=== PATIENT | female | born 1970 | race American Indian/Alaskan Native ===

== ENCOUNTER 2017-05-11 18:46 | Emergency (ER) | payer MEDICAID ==
[2017-05-11 19:29] LABS: Basophils % (Auto) 0.5 % (0.0-1.8); Eosinophils % (Auto) 0.8 % (0.0-4.3); Hematocrit 37.4 % (30.3-42.9); Hemoglobin 11.9 gm/dl (10.1-14.3); Mean Corpuscular HGB Conc 32 % (30-34); Mean Corpuscular Volume 81 fl (79-97); Platelet Count 292 K/mm3 (140-440); Red Blood Count 4.63 M/mm3 (3.65-5.03); Red Cell Distribution Width 15.9 % (13.2-15.2); White Blood Count 8.3 K/mm3 (4.5-11.0)
[2017-05-11 19:34] LABS: Mean Corpuscular Hemoglobin 26 pg (28-32)
[2017-05-11 19:41] LABS: Alanine Aminotransferase 18 units/L (7-56); Albumin 4.4 g/dL (3.9-5); Albumin/Globulin Ratio 1.3 %; Alkaline Phosphatase 94 units/L (35-129); Anion Gap 21 mmol/L; BUN/Creatinine Ratio 16.25; Blood Urea Nitrogen 13 mg/dL (7-17); Carbon Dioxide 23 mmol/L (22-30); Chloride 105.6 mmol/L (98-107); Glucose 99 mg/dL (65-100); Lipase 17 units/L (13-60); Potassium 4.3 mmol/L (3.6-5.0); Sodium 145 mmol/L (137-145); Total Protein 7.8 g/dL (6.3-8.2)
[2017-05-11 20:37] LABS: Bacteria,Urine 1+ /HPF (Negative); Bilirubin,Urine NEG (Negative); Blood,Urine SM (Negative); Ketones,Urine TR mg/dL (Negative); Leukocyte Esterase,Urine NEG (Negative); Mucus,Urine FEW /HPF; Nitrite,Urine NEG (Negative); Urobilinogen,Urine < 2.0 mg/dL (<2.0)
[2017-05-11] MEDS ORDERED: PEPCID IV ONE (23:29)
[2017-05-11] MEDS ORDERED: MORPHINE IV ONE (23:29)
[2017-05-11] MEDS ORDERED: ALUM-MAG HYDROX-SIMETH 200-200-20MG/5ML PO ONE (23:29)
[2017-05-11] MEDS ORDERED: ZOFRAN IV ONE (23:30)
[2017-05-11] MEDS ORDERED: NACL 0.9% 1000 ML 1,000 ML IV ONE (23:30)
--- NOTE | 2017-05-11 23:32 | Emergency Department Report ---
ED Abdominal Pain HPI - General Chief Complaint: Abdominal Pain Stated Complaint: ABD PAIN/VOMITING/DIARRHEA Time Seen by Provider: 05/11/17 23:10 Source: patient Mode of arrival: Ambulatory Limitations: No Limitations - History of Present Illness Initial Comments: 46-year-old -Portuguese female with severe abdominal pain, 10 out of 10, cramping like, nausea, vomiting 4 that started today. Symptoms started after the patient ate some [employer] Julián. She also has several episodes of diarrhea. No fever, no chills. Patient has a history of blood pressure compliant with medication. Pain is located in the epigastric area. No other alleviating or exacerbating factors. No prior similar symptoms MD Complaint: abdominal pain -: Gradual - Related Data Previous Rx's Medication Instructions Recorded Last Taken Type Promethazine [Phenergan TAB] 25 mg PO Q6HR PRN #14 tab 05/12/17 Unknown Rx Allergies Allergy/AdvReac Type Severity Reaction Status Date / Time Penicillins Allergy Shortness Verified 05/11/17 18:53 of Breath ED Review of Systems ROS: Stated complaint: ABD PAIN/VOMITING/DIARRHEA Other details as noted in HPI Comment: All other systems reviewed and negative Gastrointestinal: abdominal pain, nausea, vomiting, diarrhea ED Past Medical Hx - Past Medical History Hx Hypertension: Yes Hx GERD: Yes Hx of Cancer: Yes ([place] LYMPHOMA) Hx Asthma: Yes Additional medical history: VERTIGO. OBESITY - Surgical History Additional Surgical History: . HYSTERECTOMY. MASS REMOVED RIGHT LEG - Social History Smoking Status: Never Smoker Substance Use Type: None - Medications Home Medications: Home Medications Medication Instructions Recorded Confirmed Last Taken Type Promethazine [Phenergan TAB] 25 mg PO Q6HR PRN #14 tab 05/12/17 Unknown Rx ED Physical Exam - General Limitations: No Limitations General appearance: alert - Head Head exam: Present: atraumatic - Eye Eye exam: Present: normal appearance - ENT ENT exam: Present: normal exam - Respiratory Respiratory exam: Present: normal lung sounds bilaterally - Cardiovascular Cardiovascular Exam: Present: regular rate, normal rhythm - GI/Abdominal GI/Abdominal exam: Present: soft, tenderness - Skin Skin exam: Present: warm, intact ED Course Vital Signs 05/11/17 05/12/17 18:57 00:46 Temperature 98.5 F 98.8 F Pulse Rate 102 H 82 Respiratory 19 18 Rate Blood Pressure 164/108 Blood Pressure 160/85 [Left] O2 Sat by Pulse 98 98 Oximetry ED Medical Decision Making - Lab Data Result diagrams: 05/11/17 19:03 05/11/17 19:03 Critical care attestation.: If time is entered above; I have spent that time in minutes in the direct care of this critically ill patient, excluding procedure time. ED Disposition Clinical Impression: Enteritis, Food poisoning Disposition: DC-01 TO HOME OR SELFCARE Is pt being admited?: No Does the pt Need Aspirin: No Condition: Stable Instructions: Abdominal Pain (ED) Prescriptions: Promethazine [Phenergan TAB] 25 mg PO Q6HR PRN #14 tab PRN Reason: Nausea Referrals: NATY LAL NP-C [Primary Care Provider] - 3-5 Days Forms: Work/School Release Form(ED)
[2017-05-12 00:47] VITALS: BP 160/85
--- NOTE | 2017-05-12 01:16 | Cat Scan Report ---
FINAL REPORT PROCEDURE: CT ABDOMEN PELVIS WO CON TECHNIQUE: Computerized axial tomography of the abdomen and pelvis was performed without intravenous contrast. This study is performed without intravascular contrast material and its sensitivity for abdominal and pelvic pathology, including neoplasms, inflammation, abscess, free fluid, thrombosis, arterial dissection and infarction, is reduced compared with a contrast enhanced study. HISTORY: abd pain COMPARISON: No prior studies are available for comparison. FINDINGS: Lower Lung [place]: No focal abnormality seen. Upper Abdomen: The unenhanced images of the liver and gallbladder as well as the adrenal glands, the pancreas and spleen are unremarkable. Kidneys, Ureters and Urinary bladder: No abnormalities are identified. Urinary bladder is only partially filled and shows no gross abnormality. Calcifications are seen in the lower pelvis which appear to represent phleboliths. Retroperitoneum: Mild atherosclerotic changes seen in the abdominal aorta and iliac arteries. No aneurysm is seen. Nonspecific subcentimeter lymph nodes are seen in the retroperitoneum. No pathologically enlarged lymph nodes are identified. Bowel: Mild diverticulosis seen in the sigmoid colon without evidence of diverticulitis. There is no evidence of bowel obstruction. Normal-appearing appendix is seen in the right lower quadrant. No ascites or free intraperitoneal gas is seen. Bravo of several loops of small bowel in the left lower quadrant appear thicker than expected. These are visualized on image 105 series 3 axial image through image 150 series 3 axial image. I cannot exclude a nonspecific enteritis. Bowel loops otherwise are unremarkable. Reproductive organs: Uterus is surgically absent. No abnormal adnexal masses are seen. Other: No acute bony abnormalities are identified. IMPRESSION: Prior hysterectomy. Mild sigmoid diverticulosis without evidence of diverticulitis. Bravo of several loops of small bowel in the left lower quadrant appear thicker than expected. I cannot exclude a mild nonspecific enteritis. No ascites or bowel obstruction is visualized. No other abnormalities are identified..
== END 2017-05-12 01:45 | disposition home or self-care (01) ==
LOC: ED 18:46
DX: K52.9 Noninfective gastroenteritis and colitis, unspecified (principal); T62.8X1A Toxic effect of other specified noxious substances eaten as food, accidental (unintentional), initial encounter; Y92.89 Other specified places as the place of occurrence of the external cause; K21.9 Gastro-esophageal reflux disease without esophagitis; I10 Essential (primary) hypertension; C81.90 Hodgkin lymphoma, unspecified, unspecified site
CPT/HCPCS: 36415; 74176; 80053; 81001; 83690; 85025; 96361; 96374; 96375; 99284; J2270; J2405; J7030

== ENCOUNTER 2019-07-06 16:57 | Emergency (ER) | payer SELFPAY ==
[2019-07-06 17:07] VITALS: BP 162/96
--- NOTE | 2019-07-06 17:08 | Event Note ---
ED Screening Note Date of service: 07/06/19 Time: 17:04 ED Screening Note: This is a 48 y.o. F. that presents to the ER with low hip pain radiating to left leg. Patient reports waking up with symptoms. She also reports a cough for 1 week that is worsening. Taking OTC cough medication. This initial assessment/diagnostic orders/clinical plan/treatment(s) is/are subject to change based on patients health status, clinical progression and re- assessment by fellow clinical providers in the ED. Further treatment and workup at subsequent clinical providers discretion. Patient/guardian urged not to elope from the ED as their condition may be serious if not clinically assessed and managed. Initial orders include: XR L-spine and CXR
--- NOTE | 2019-07-06 18:01 | XRay Report ---
Left hip, 2 views INDICATION: Hip pain FINDINGS: The joint space is maintained. There is no fracture or dislocation. No spurring or arthriti c change. No bone lesion or periostitis. No significant abnormality. IMPRESSION: Negative study Signer Name: Satya Aguilar MD Signed: 07/06/2019 5:57 PM Workstation Name: [id number]
--- NOTE | 2019-07-06 18:02 | XRay Report ---
LUMBAR SPINE 3 VIEWS INDICATION / CLINICAL INFORMATION: low back pain. COMPARISON: CT of the abdomen and pelvis from 05/12/2017 FINDINGS: VERTEBRAE: No acute fracture. No significant malalignment. Transitional L5 vertebra is noted, with bi lateral pseudoarthroses. DISC SPACES / FACET JOINTS:No significant abnormality. PARASPINAL SOFT TISSUES:No significant abnormality. Signer Name: Paul Solis MD Signed: 07/06/2019 5:58 PM Workstation Name: [id number]
--- NOTE | 2019-07-06 18:02 | XRay Report ---
CHEST 2 VIEWS INDICATION / CLINICAL INFORMATION: cough. COMPARISON: None available. FINDINGS: SUPPORT DEVICES: None. HEART / MEDIASTINUM: No significant abnormality. LUNGS / PLEURA: No significant pulmonary or pleural abnormality. No pneumothorax. ADDITIONAL FINDINGS: No significant additional findings. IMPRESSION: 1. No acute findings. Signer Name: Satya Aguilar MD Signed: 07/06/2019 5:57 PM Workstation Name: [id number]
--- NOTE | 2019-07-06 18:23 | Emergency Department Report ---
ED Back Pain/Injury HPI - General Chief Complaint: Upper Respiratory Infection Stated Complaint: LEG/CHEST PAIN/COLD SX Time Seen by Provider: 07/06/19 17:03 Source: patient Limitations: No Limitations - History of Present Illness Initial Comments: Mrs. Monreal is a 48-year-old female with history of asthma GERD hypertension who presents with one week of cough and nasal congestionand one day of back pain. Clear sputum production. Nasal congestion. No fever. She did use over the counter successfully with Mucinex. She awakened this morning with severe lower back pain radiating to the left hip to the knee. Worse with position change. Worse with sitting to standing motion. 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 No previous history of back pain. She is followed by PCP at [facility] [place]. MD Complaint: back pain -: Gradual, days(s) (1) Similar Symptoms Previously: No Place: home Radiation: buttocks, left leg Severity: severe Severity scale (0 -10): 10 Quality: dull, aching Consistency: constant Improves With: none Worsens With: movement, sitting upright, walking Context: unknown Associated Symptoms: other (cough congestion) - Related Data Previous Rx's Medication Instructions Recorded Last Taken Type Promethazine [Phenergan] 25 mg PO Q6HR PRN #14 tab 05/12/17 Unknown Rx Cyclobenzaprine [Flexeril] 10 mg PO TID PRN #20 tablet 07/06/19 Unknown Rx HYDROcodone/APAP 5-325 [[place] 1 each PO Q6HR PRN #10 tablet 07/06/19 Unknown Rx 5/325] Ibuprofen [Motrin 800 MG tab] 800 mg PO TID 5 Days #15 tablet 07/06/19 Unknown Rx Allergies Allergy/AdvReac Type Severity Reaction Status Date / Time Penicillins Allergy Shortness Verified 07/06/19 16:59 of Breath ED Review of Systems ROS: Stated complaint: LEG/CHEST PAIN/COLD SX Other details as noted in HPI Comment: All other systems reviewed and negative Constitutional: denies: fever, malaise ENT: congestion Respiratory: cough. denies: shortness of breath Cardiovascular: denies: chest pain Gastrointestinal: denies: abdominal pain, nausea Genitourinary: denies: as per HPI Musculoskeletal: back pain ED Past Medical Hx - Past Medical History Previous Medical History?: Yes Hx Hypertension: Yes Hx GERD: Yes Hx Asthma: Yes Additional medical history: VERTIGO. OBESITY - Surgical History Past Surgical History?: Yes Additional Surgical History: . HYSTERECTOMY. MASS REMOVED RIGHT LEG - Social History Smoking Status: Never Smoker Substance Use Type: None - Medications Home Medications: Home Medications Medication Instructions Recorded Confirmed Last Taken Type Promethazine [Phenergan] 25 mg PO Q6HR PRN #14 tab 05/12/17 Unknown Rx Cyclobenzaprine [Flexeril] 10 mg PO TID PRN #20 tablet 07/06/19 Unknown Rx HYDROcodone/APAP 5-325 [[place] 1 each PO Q6HR PRN #10 tablet 07/06/19 Unknown Rx 5/325] Ibuprofen [Motrin 800 MG tab] 800 mg PO TID 5 Days #15 tablet 07/06/19 Unknown Rx ED Physical Exam - General Limitations: No Limitations General appearance: alert, in no apparent distress - Head Head exam: Present: atraumatic, normocephalic - Eye Eye exam: Present: normal appearance - ENT ENT exam: Present: mucous membranes moist - Neck Neck exam: Present: normal inspection, full ROM - Respiratory Respiratory exam: Present: normal lung sounds bilaterally. Absent: respiratory distress, wheezes, rales, rhonchi - Cardiovascular Cardiovascular Exam: Present: regular rate, normal rhythm, normal heart sounds. Absent: systolic murmur, diastolic murmur, rubs, gallop - GI/Abdominal GI/Abdominal exam: Present: soft, normal bowel sounds. Absent: distended, tenderness, guarding, rebound - Extremities Exam Extremities exam: Present: normal inspection, full ROM. Absent: tenderness - Back Exam Back exam: Present: normal inspection, full ROM, muscle spasm. Absent: tenderness, CVA tenderness (R), CVA tenderness (L) - Neurological Exam Neurological exam: Present: alert, oriented X3, normal gait - Psychiatric Psychiatric exam: Present: normal affect, normal mood - Skin Skin exam: Present: warm, dry, intact, normal color. Absent: rash ED Course Vital Signs 07/06/19 17:04 Temperature 98.9 F Pulse Rate 92 H Respiratory 20 Rate Blood Pressure 162/96 [Left] O2 Sat by Pulse 99 Oximetry ED Medical Decision Making - Radiology Data Radiology results: report reviewed Radiology impressions of the chest radiographs, lumbar spine series, left hip all within normal limits. - Medical Decision Making 1. URI: Recommended [id number] treatment including Mucinex chest x-ray negative for pneumonia 2. Lumbar radiculopathy: Recommended evaluation by her primary care physician for physical therapy. Prescribed medical ibuprofen and Flexeril no red flags such as bowel or bladder incontinence, fever, weight loss, advanced age Critical care attestation.: If time is entered above; I have spent that time in minutes in the direct care of this critically ill patient, excluding procedure time. ED Disposition Clinical Impression: Upper respiratory infection, Lumbar radiculopathy, acute Disposition: - TO HOME OR SELFCARE Is pt being admited?: No Does the pt Need Aspirin: No Condition: Stable Instructions: Upper Respiratory Infection (ED), Lumbar Radiculopathy (ED) Prescriptions: Cyclobenzaprine [Flexeril] 10 mg PO TID PRN #20 tablet PRN Reason: Muscle Spasm Ibuprofen [Motrin 800 MG tab] 800 mg PO TID 5 Days #15 tablet HYDROcodone/APAP 5-325 [[place] 5/325] 1 each PO Q6HR PRN #10 tablet PRN Reason: Pain Referrals: PRIMARY CARE, [Primary Care Provider] - 3-5 Days
[2019-07-06] MEDS ORDERED: IBUPROFEN PO ONE ×2 (18:34→18:37)
[2019-07-06] MEDS ORDERED: NORCO 5/325 PO ONE (18:34)
[2019-07-06] MEDS ORDERED: NORCO 5/325 ONE (18:37)
== END 2019-07-06 18:52 | disposition home or self-care (01) ==
LOC: ED 16:57
DX: J06.9 Acute upper respiratory infection, unspecified (principal); M54.16 Radiculopathy, lumbar region; I10 Essential (primary) hypertension; K21.9 Gastro-esophageal reflux disease without esophagitis; J45.909 Unspecified asthma, uncomplicated; E66.9 Obesity, unspecified; Z68.42 Body mass index [BMI] 45.0-49.9, adult; Z90.710 Acquired absence of both cervix and uterus; Z88.0 Allergy status to penicillin; Z79.899 Other long term (current) drug therapy
CPT/HCPCS: 71046; 72100; 99283

== ENCOUNTER 2019-10-14 19:34 | Emergency (ER) | payer OTHER ==
--- NOTE | 2019-10-14 20:49 | Emergency Department Report ---
Blank Doc - Documentation Documentation: 49-year-old female that presents with left shoulder pain. This initial assessment/diagnostic orders/clinical plan/treatment(s) is/are subject to change based on patient's health status, clinical progression and re- assessment by fellow clinical providers in the ED. Further treatment and workup at subsequent clinical providers discretion. Patient/guardians urged not to elope from the ED as their condition may be serious if not clinically assessed and managed. Initial orders include: 1- Patient sent to [facility] for further evaluation and treatment 2- xrays
--- NOTE | 2019-10-14 21:22 | XRay Report ---
LEFT SHOULDER, 3 VIEWS INDICATION / CLINICAL INFORMATION: shoulder pain. COMPARISON: None available. FINDINGS: Mild degenerative changes are present in the AC joint and glenohumeral joint. No fracture or dislocat ion noted, however. No abnormal soft tissue calcifications identified. IMPRESSION: Mild degenerative change involving the shoulder. Signer Name: Cassidy Washington MD Signed: 10/14/2019 9:18 PM Workstation Name: [id number]
[2019-10-14] MEDS ORDERED: dexAMETHasone 20 MG/5 ML VIAL IM ONE (22:04)
[2019-10-14] MEDS ORDERED: IBUPROFEN 800 MG TAB PO ONE (22:04)
[2019-10-14] MEDS ORDERED: ACETAMINOPHEN W/CODEINE 300-30 MG TAB PO ONE (22:04)
--- NOTE | 2019-10-14 23:08 | Emergency Department Report ---
ED Upper Extremity Inj HPI - General Chief Complaint: Shoulder Injury Stated Complaint: LEFT SHOULDER PAIN Time Seen by Provider: 10/14/19 20:47 Source: patient Mode of arrival: Ambulatory Limitations: Physical Limitation - Related Data Previous Rx's Medication Instructions Recorded Last Taken Type Promethazine [Phenergan] 25 mg PO Q6HR PRN #14 tab 05/12/17 Unknown Rx Cyclobenzaprine [Flexeril] 10 mg PO TID PRN #20 tablet 07/06/19 Unknown Rx HYDROcodone/APAP 5-325 [[place] 1 each PO Q6HR PRN #10 tablet 07/06/19 Unknown Rx 5/325] Ibuprofen [Motrin 800 MG tab] 800 mg PO TID 5 Days #15 tablet 07/06/[address] (Nf) 50 mg PO TID PRN #30 tab 10/14/19 Unknown Rx Methyl Salicylate/Menthol [[place] 1 applicatio TP QID PRN #1 tube 10/14/19 Unknown Rx [place] Active 16%-8% Gel] methOCARBAMOL [Robaxin TAB] 200 mg PO Q8H PRN #30 tablet 10/14/19 Unknown Rx predniSONE [Deltasone] 40 mg PO QDAY 5 Days #10 tab 10/14/19 Unknown Rx Allergies Allergy/AdvReac Type Severity Reaction Status Date / Time Penicillins Allergy Shortness Verified 07/06/19 16:59 of Breath ED Review of Systems ROS: Stated complaint: LEFT SHOULDER PAIN Other details as noted in HPI Constitutional: denies: chills, fever Eyes: denies: eye pain, eye discharge, vision change ENT: denies: ear pain, throat pain Respiratory: denies: cough, shortness of breath, wheezing Cardiovascular: denies: chest pain, palpitations Endocrine: no symptoms reported Gastrointestinal: denies: abdominal pain, nausea, diarrhea Genitourinary: denies: urgency, dysuria, discharge Musculoskeletal: arthralgia, myalgia, other (left posterior lateral shoulder pain). denies: back pain, joint swelling Skin: denies: rash, lesions Neurological: denies: headache, weakness, paresthesias Psychiatric: denies: anxiety, depression Hematological/Lymphatic: denies: easy bleeding, easy bruising ED Past Medical Hx - Past Medical History Hx Hypertension: Yes Hx GERD: Yes Hx Asthma: Yes Additional medical history: VERTIGO. OBESITY - Surgical History Additional Surgical History: . HYSTERECTOMY. MASS REMOVED RIGHT LEG - Social History Smoking Status: Never Smoker Substance Use Type: None - Medications Home Medications: Home Medications Medication Instructions Recorded Confirmed Last Taken Type Promethazine [Phenergan] 25 mg PO Q6HR PRN #14 tab 05/12/17 Unknown Rx Cyclobenzaprine [Flexeril] 10 mg PO TID PRN #20 tablet 07/06/19 Unknown Rx HYDROcodone/APAP 5-325 [[place] 1 each PO Q6HR PRN #10 tablet 07/06/19 Unknown Rx 5/325] Ibuprofen [Motrin 800 MG tab] 800 mg PO TID 5 Days #15 tablet 07/06/[address] (Nf) 50 mg PO TID PRN #30 tab 10/14/19 Unknown Rx Methyl Salicylate/Menthol [[place] 1 applicatio TP QID PRN #1 tube 10/14/19 Unknown Rx [place] Active 16%-8% Gel] methOCARBAMOL [Robaxin TAB] 200 mg PO Q8H PRN #30 tablet 10/14/19 Unknown Rx predniSONE [Deltasone] 40 mg PO QDAY 5 Days #10 tab 10/14/19 Unknown Rx ED Physical Exam - General Limitations: Physical Limitation General appearance: alert, in no apparent distress - Head Head exam: Present: atraumatic, normocephalic - Eye Eye exam: Present: PERRL, EOMI Pupils: Present: normal accommodation - ENT ENT exam: Present: normal orophraynx, mucous membranes moist - Neck Neck exam: Present: normal inspection, full ROM, thyromegaly. Absent: tenderness, meningismus, lymphadenopathy - Expanded Neck Exam Expanded Neck exam: Absent: tenderness, midline deformity, anterior neck swelling, thyroid mass, carotid bruit, tracheal deviation - Respiratory Respiratory exam: Present: normal lung sounds bilaterally. Absent: respiratory distress, wheezes, chest wall tenderness - Cardiovascular Cardiovascular Exam: Present: regular rate, normal rhythm, normal heart sounds. Absent: systolic murmur, diastolic murmur, rubs, gallop - GI/Abdominal GI/Abdominal exam: Present: soft, normal bowel sounds. Absent: distended, tenderness, bruit, hernia - Rectal Rectal exam: Present: deferred - Extremities Exam Extremities exam: Present: normal inspection, full ROM, tenderness (left posterior lateral shoulder muscle pain to palpation no deformity no swelling rom intact shoulder drop, pronation and supination distal pulses +2 ), normal capillary refill. Absent: joint swelling - Expanded Upper Extremity Exam Left Shoulder Exam: Present: full ROM, tenderness. Absent: swelling, abrasion, laceration, ecchymosis, deformity, crepidus, dislocation, erythema, tenderness over AC joint Upper Arm exam: Present: full ROM. Absent: tenderness Elbow exam: Present: full ROM. Absent: tenderness Forearm Wrist exam: Present: full ROM. Absent: tenderness Hand Wrist exam: Present: full ROM. Absent: tenderness Neuro motor exam: Present: wrist extension intact Neurosensory exam: Present: radial nerve intact Vascular: Present: normal capillary refill. Absent: pulse deficit radial art - Back Exam Back exam: Present: normal inspection, full ROM. Absent: tenderness, CVA tenderness (R), CVA tenderness (L), vertebral tenderness, rash noted - Neurological Exam Neurological exam: Present: alert, oriented X3, CN II-XII intact, normal gait, reflexes normal. Absent: motor sensory deficit - Psychiatric Psychiatric exam: Present: normal affect, normal mood - Skin Skin exam: Present: warm, dry, intact, normal color. Absent: rash ED Course Vital Signs 10/14/19 10/14/19 19:44 20:47 Temperature 98.2 F 98.2 F Pulse Rate 78 79 Respiratory 18 18 Rate Blood Pressure 170/94 170/94 O2 Sat by Pulse 97 99 Oximetry ED Medical Decision Making - Radiology Data Radiology results: report reviewed, image reviewed Ordering Physician: JAZMIN SANTORO NP Date of Service: 10/14/19 Procedure(s): XR shoulder 2+V LT Accession Number(s): [id number] cc: JAZMIN SANTORO NP Fluoro Time In Minutes: LEFT SHOULDER, 3 VIEWS INDICATION / CLINICAL INFORMATION: shoulder pain. COMPARISON: None available. FINDINGS: Mild degenerative changes are present in the AC joint and glenohumeral joint. No fracture or dislocation noted, however. No abnormal soft tissue calcifications identified. IMPRESSION: Mild degenerative change involving the shoulder. Signer Name: Cassidy Washington MD Signed: 10/14/2019 9:18 PM Workstation Name: [id number] Transcribed By: Dictated By: Cassidy Washington MD Electronically Authenticated By: Cassidy Washington MD Signed Date/Time: 10/14/192117 DD/ 16 TD/TT: - Medical Decision Making this is a shoulder strain, with degenerative changes noted on xray: no fracture no soft tissue abnormality. 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 pain is improved with medications given in ed, rom continues unrestricted, pain is now 2/10 vice 8/10 on presentation, plan: diclofenac , methocarbamol, [place], prednisone , follow up with orthopedics in 2-3 days, pt verbalized agreement and understanding with discharge plan. Critical care attestation.: If time is entered above; I have spent that time in minutes in the direct care of this critically ill patient, excluding procedure time. ED Disposition Clinical Impression: Sprain of shoulder Qualifiers: Encounter type: initial encounter Shoulder sprain type: rotator cuff capsule Laterality: left Qualified Code(s): S43.422A - Sprain of left rotator cuff capsule, initial encounter Disposition: TO HOME OR SELFCARE Is pt being admited?: No Does the pt Need Aspirin: No Condition: Stable Instructions: Shoulder Sprain (ED), Arthralgia (ED) Prescriptions: predniSONE [Deltasone] 40 mg PO QDAY 5 Days #[address] (Nf) 50 mg PO TID PRN #30 tab PRN Reason: pain methOCARBAMOL [Robaxin TAB] 200 mg PO Q8H PRN #30 tablet PRN Reason: Muscle Spasm Methyl Salicylate/Menthol [[place] Active 16%-8% Gel] 1 applicatio TP QID PRN #1 tube PRN Reason: pain Referrals: MELINDA BELLO MD [Staff Physician] - 3-5 Days Forms: Work/School Release Form(ED)
[2019-10-14 23:32] VITALS: BP 142/89
== END 2019-10-14 23:25 | disposition home or self-care (01) ==
LOC: ED 19:34
DX: S43.422A Sprain of left rotator cuff capsule, initial encounter (principal); I10 Essential (primary) hypertension; K21.9 Gastro-esophageal reflux disease without esophagitis; J45.909 Unspecified asthma, uncomplicated; Z90.710 Acquired absence of both cervix and uterus; Z98.890 Other specified postprocedural states; Z88.0 Allergy status to penicillin; Z79.899 Other long term (current) drug therapy; X58.XXXA Exposure to other specified factors, initial encounter; Y93.89 Activity, other specified; Y92.89 Other specified places as the place of occurrence of the external cause; Y99.8 Other external cause status
CPT/HCPCS: 73030; 96372; 99283; J1100

== ENCOUNTER 2019-12-06 10:00 | Emergency (ER) | payer OTHER ==
[2019-12-06 10:16] VITALS: BP 164/108
[2019-12-06] MEDS ORDERED: predniSONE 20 MG TAB PO ONE (11:58)
[2019-12-06] MEDS ORDERED: CYCLOBENZAPRINE 10 MG TAB PO ONE (11:58)
--- NOTE | 2019-12-06 12:37 | Emergency Department Report ---
ED General Adult HPI - General Chief complaint: Fall Stated complaint: FALL Time Seen by Provider: 12/06/19 11:24 Source: patient Mode of arrival: Ambulatory Limitations: No Limitations - History of Present Illness Initial comments: This is a 49-year-old female who presents the ED complaining of left shoulder wrist and ankle pain status post slip and fall earlier today. Patient states that she was coming down the steps when she accidentally slipped and almost fell. Patient states she caught her fall by grabbing onto the stair rail. Patient states she did not injure her head or sustain any neck injuries. Patient states pain is throbbing and aching in nature localized to her left side as she hit her left side on the rail. - Related Data Previous Rx's Medication Instructions Recorded Last Taken Type Promethazine [Phenergan] 25 mg PO Q6HR PRN #14 tab 05/12/17 Unknown Rx HYDROcodone/APAP 5-325 [[place] 1 each PO Q6HR PRN #10 tablet 07/06/19 Unknown Rx 5/325] Diclofenac Dr (Nf) 50 mg PO TID PRN #30 tab 10/14/19 Unknown Rx Methyl Salicylate/Menthol [[place] 1 applicatio TP QID PRN #1 tube 10/14/19 Unknown Rx [place] Active 16%-8% Gel] methOCARBAMOL [Robaxin TAB] 200 mg PO Q8H PRN #30 tablet 10/14/19 Unknown Rx predniSONE [Deltasone] 40 mg PO QDAY 5 Days #10 tab 10/14/19 Unknown Rx Cyclobenzaprine [Flexeril 10 MG 10 mg PO BID PRN #20 tablet 12/06/19 Unknown Rx TAB] Ibuprofen [Motrin 800 MG tab] 800 mg PO TID 5 Days #30 tablet 12/06/19 Unknown Rx Allergies Allergy/AdvReac Type Severity Reaction Status Date / Time Penicillins Allergy Shortness Verified 07/06/19 16:59 of Breath ED Review of Systems ROS: Stated complaint: FALL Other details as noted in HPI Comment: All other systems reviewed and negative ED Past Medical Hx - Past Medical History Previous Medical History?: Yes Hx Hypertension: Yes Hx GERD: Yes Hx Asthma: Yes Additional medical history: VERTIGO. OBESITY - Surgical History Past Surgical History?: Yes Additional Surgical History: . HYSTERECTOMY. MASS REMOVED RIGHT LEG - Social History Smoking Status: Never Smoker Substance Use Type: None - Medications Home Medications: Home Medications Medication Instructions Recorded Confirmed Last Taken Type Promethazine [Phenergan] 25 mg PO Q6HR PRN #14 tab 05/12/17 Unknown Rx HYDROcodone/APAP 5-325 [[place] 1 each PO Q6HR PRN #10 tablet 07/06/19 Unknown Rx 5/325] Diclofenac Dr (Nf) 50 mg PO TID PRN #30 tab 10/14/19 Unknown Rx Methyl Salicylate/Menthol [[place] 1 applicatio TP QID PRN #1 tube 10/14/19 Unknown Rx [place] Active 16%-8% Gel] methOCARBAMOL [Robaxin TAB] 200 mg PO Q8H PRN #30 tablet 10/14/19 Unknown Rx predniSONE [Deltasone] 40 mg PO QDAY 5 Days #10 tab 10/14/19 Unknown Rx Cyclobenzaprine [Flexeril 10 MG 10 mg PO BID PRN #20 tablet 12/06/19 Unknown Rx TAB] Ibuprofen [Motrin 800 MG tab] 800 mg PO TID 5 Days #30 tablet 12/06/19 Unknown Rx ED Physical Exam - General Limitations: No Limitations General appearance: alert, in no apparent distress - Head Head exam: Present: atraumatic, normocephalic - Eye Eye exam: Present: normal appearance - ENT ENT exam: Present: mucous membranes moist - Neck Neck exam: Present: normal inspection - Respiratory Respiratory exam: Present: normal lung sounds bilaterally. Absent: respiratory distress - Cardiovascular Cardiovascular Exam: Present: regular rate, normal rhythm. Absent: systolic murmur, diastolic murmur, rubs, gallop - GI/Abdominal GI/Abdominal exam: Present: soft, normal bowel sounds - Extremities Exam Extremities exam: Present: normal inspection, full ROM, tenderness (To palpation of the shoulder and wrist joint.), normal capillary refill. Absent: joint swelling - Expanded Upper Extremity Exam Left Shoulder Exam: Present: normal inspection, full ROM. Absent: tenderness Upper Arm exam: Present: full ROM. Absent: tenderness, swelling Elbow exam: Present: normal inspection, full ROM. Absent: tenderness, swelling, abrasion Forearm Wrist exam: Present: normal inspection, full ROM. Absent: tenderness, swelling, abrasion, deformity Hand Wrist exam: Present: normal inspection, full ROM, tenderness (Mild tenderness to palpation of the upper wrist, no snuffbox tenderness) Neuro motor exam: Present: wrist extension intact Vascular: Absent: vascular compromise - Expanded Lower Extremity Exam Left Hip exam: Present: full ROM. Absent: tenderness, swelling Upper Leg exam: Present: normal inspection Knee exam: Present: normal inspection, full ROM. Absent: tenderness, swelling Lower Leg exam: Present: normal inspection, full ROM. Absent: tenderness, swelling, deformity Ankle exam: Present: normal inspection, full ROM, tenderness. Absent: swelling, abrasion, deformity Foot/Toe exam: Present: normal inspection, full ROM. Absent: tenderness, swelling, abrasion, deformity Neuro vascular tendon exam: Present: no vascular compromise Gait: Positive: observed and normal - Back Exam Back exam: Present: normal inspection, full ROM. Absent: CVA tenderness (R), CVA tenderness (L) - Neurological Exam Neurological exam: Present: alert, oriented X3, CN II-XII intact, normal gait - Psychiatric Psychiatric exam: Present: normal affect, normal mood - Skin Skin exam: Present: warm, dry, intact, normal color. Absent: rash ED Course Vital Signs 12/06/19 10:15 Temperature 98.4 F Pulse Rate 80 Respiratory 18 Rate Blood Pressure 164/108 O2 Sat by Pulse 98 Oximetry ED Medical Decision Making - Medical Decision Making 49-year-old female presents to ED with myalgia status post fall ED course: Patient received prednisone l and Flexeril in ED. There was no joint deformity or signs of fractures. Vital signs are normal patient is in no acute distress Discussed with patient follow-up with primary care physician. Discussed the patient and take medications as prescribed. Patient has no neurological deficit. Patient is alert and oriented 3 and understands all instructions given. Discussed drowsiness effect of Flexeril makes her drowsy and not to operate machinery while taking flexeril Critical care attestation.: If time is entered above; I have spent that time in minutes in the direct care of this critically ill patient, excluding procedure time. ED Disposition Clinical Impression: Muscle strain of ankle, Fall, Strain of wrist, left Disposition: DC-01 TO HOME OR SELFCARE Is pt being admited?: No Does the pt Need Aspirin: No Condition: Stable Instructions: Muscle Strain (ED), Ankle Exercises (GEN), Wrist Sprain (ED) Additional Instructions: Make sure to follow up with the primary care physician as discussed. Take all your medications as you've been prescribed. If you have any worsening symptoms or develop new symptoms please return to ED immediately. Prescriptions: Cyclobenzaprine [Flexeril 10 MG TAB] 10 mg PO BID PRN #20 tablet PRN Reason: Muscle Spasm Ibuprofen [Motrin 800 MG tab] 800 mg PO TID 5 Days #30 tablet Referrals: PRIMARY CARE, [Referring] - 3-5 Days [facility] [Outside] - 3-5 Days [facility] [Outside] - 3-5 Days [facility] [Provider Group] - 3-5 Days [facility] [Provider Group] - 3-5 Days [facility] [Provider Group] - 3-5 Days Forms: Work/School Release Form(ED) Time of Disposition: 12:49
== END 2019-12-06 13:36 | disposition home or self-care (01) ==
LOC: ED 10:00
DX: S96.912A Strain of unspecified muscle and tendon at ankle and foot level, left foot, initial encounter (principal); S66.912A Strain of unspecified muscle, fascia and tendon at wrist and hand level, left hand, initial encounter; W18.30XA Fall on same level, unspecified, initial encounter; Y93.89 Activity, other specified; Y92.89 Other specified places as the place of occurrence of the external cause; Y99.8 Other external cause status
CPT/HCPCS: 99282; J7512

== ENCOUNTER 2019-12-17 11:08 | Emergency (ER) | payer OTHER ==
--- NOTE | 2019-12-17 12:17 | Emergency Department Report ---
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 Patient states she is about 2 episodes of vomiting and 2 episodes of diarrhea for the past 2 days. 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 ED Review of Systems ROS: Stated complaint: V/DIARRHEA Other details as noted in HPI Comment: All other systems reviewed and negative ED Past Medical Hx - Past Medical History Previous Medical History?: Yes Hx Hypertension: Yes Hx GERD: Yes Hx of Cancer: Yes (hodgkin's lymphoma) Hx Asthma: Yes Additional medical history: VERTIGO. OBESITY - Surgical History Past Surgical History?: Yes Additional Surgical History: . HYSTERECTOMY. MASS REMOVED RIGHT LEG - Social History Smoking Status: Never Smoker Substance Use Type: None - Medications Home Medications: Home Medications Medication Instructions Recorded Confirmed Last Taken Type Promethazine [Phenergan] 25 mg PO Q6HR PRN #14 tab 05/12/17 Unknown Rx HYDROcodone/APAP 5-325 [[place] 1 each PO Q6HR PRN #10 tablet 07/06/19 Unknown Rx 5/325] Diclofenac Dr (Nf) 50 mg PO TID PRN #30 tab 10/14/19 Unknown Rx Methyl Salicylate/Menthol [[place] 1 applicatio TP QID PRN #1 tube 10/14/19 Unknown Rx [place] Active 16%-8% Gel] methOCARBAMOL [Robaxin TAB] 200 mg PO Q8H PRN #30 tablet 10/14/19 Unknown Rx predniSONE [Deltasone] 40 mg PO QDAY 5 Days #10 tab 10/14/19 Unknown Rx Cyclobenzaprine [Flexeril 10 MG 10 mg PO BID PRN #20 tablet 12/06/19 Unknown Rx TAB] Ibuprofen [Motrin 800 MG tab] 800 mg PO TID 5 Days #30 tablet 12/06/19 Unknown Rx Vomiting Diarrhea Exam - Exam General: Vital signs noted. No distress. Alert and acting appropriately. HEENT: Yes Moist Mucous Membranes, No Pharyngeal Erythema, No Pharyngeal Exudates, No Rhinorrhea, No Conjuctival Injection, No Frontal Tenderness, No Maxillary Tenderness Neck: No Adenopathy, No Rigidity Lungs: Yes Clear Lung Sounds, Yes Good Air Exchange, No Wheezes, No Stridor, No Cough, No Nasal Flaring, No Retractions, No Use of Accessory Muscles Heart exam: Regular: Yes, Murmur: No, Tachycardia: No Abdomen: Tenderness: No, Peritoneal Signs: No, Distention: No, Hyperactive Bowel sounds: No Skin exam: Rash: No, Edema: No, Normal turgor: Yes Neurologic: Alert and oriented, no deficits. Musculoskeletal: Unremarkable. ED Medical Decision Making - Medical Decision Making Patient 1-year-old female presents with gastroenteritis/gastritis Discussed with patient to take her Pepcid and omeprazole daily. Discussed a food poisoning symptoms will pass on its own. Patient states this is a mild case she is only had 2 episodes of vomiting and diarrhea in the past 2 days. 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 Vital signs are normal she is in no acute distress. I discussed with patient to follow-up with primary care physician in 3 days. Also advised patient to follow-up with the panel fitter. Critical care attestation.: If time is entered above; I have spent that time in minutes in the direct care of this critically ill patient, excluding procedure time. ED Disposition Clinical Impression: Acute gastroenteritis, Acute gastritis Disposition: DC-01 TO HOME OR SELFCARE Is pt being admited?: No Does the pt Need Aspirin: No Condition: Stable Instructions: Gastroenteritis (ED), Acute Nausea and Vomiting (ED), Food Po isoning (ED) Additional Instructions: Make sure to follow up with the primary care physician as discussed. Take all your medications as you've been prescribed. If you have any worsening symptoms or develop new symptoms please return to ED immediately. Referrals: PRIMARY CARE, [Primary Care Provider] - 3-5 Days [facility] [Outside] - 3-5 Days [facility] [Outside] - 3-5 Days Forms: Accompanied Note, Work/School Release Form(ED) Time of Disposition: 12:22
[2019-12-17 12:40] VITALS: BP 153/91
== END 2019-12-17 12:38 | disposition home or self-care (01) ==
LOC: ED 11:08
DX: K52.9 Noninfective gastroenteritis and colitis, unspecified (principal); K29.00 Acute gastritis without bleeding; I10 Essential (primary) hypertension; K21.9 Gastro-esophageal reflux disease without esophagitis; J45.909 Unspecified asthma, uncomplicated
CPT/HCPCS: 99282

== ENCOUNTER 2020-09-07 11:05 | Emergency (ER) | payer OTHER ==
[2020-09-07 11:17] VITALS: BP 124/86
[2020-09-07] MEDS ORDERED: IPRATROPIUM/ALBUTEROL SULFATE 3 ML AMPUL.NEB IH ONE (13:29)
--- NOTE | 2020-09-07 14:06 | XRay Report ---
CHEST 2 VIEWS INDICATION: cough. COMPARISON: 05/06/2019. FINDINGS: Support devices: None. Heart: Within normal limits. Lungs/Pleura: Lung volumes are diminished. Mild right basilar opacity. No significant pleural effus ion. IMPRESSION: Diminished lung volumes with possible right basilar pneumonia. Signer Name: Adama Quiroz MD Signed: 09/07/2020 2:01 PM Workstation Name: [id number]
--- NOTE | 2020-09-07 15:01 | Emergency Department Report ---
- General Chief Complaint: Upper Respiratory Infection Stated Complaint: COUGH, HEAD COLD,DEHYDRATION Time Seen by Provider: 09/07/20 13:22 Source: patient Mode of arrival: Ambulatory Limitations: No Limitations - History of Present Illness MD Complaint: cough, rhinorrhea, nasal congestion -: Gradual, week(s) Severity: mild, moderate Quality: dull Consistency: constant Improves With: nothing Worsens With: nothing Associated Symptoms: rhinorrhea, nasal congestion, cough, shortness of breath. denies: chest pain, abdominal pain - Related Data Previous Rx's Medication Instructions Recorded Last Taken Type Promethazine [Phenergan] 25 mg PO Q6HR PRN #14 tab 05/12/17 Unknown Rx HYDROcodone/APAP 5-325 [[place] 1 each PO Q6HR PRN #10 tablet 07/06/19 Unknown Rx 5/325] Diclofenac Dr (Nf) 50 mg PO TID PRN #30 tab 10/14/19 Unknown Rx Methyl Salicylate/Menthol [[place] 1 applicatio TP QID PRN #1 tube 10/14/19 Unknown Rx [place] Active 16%-8% Gel] methOCARBAMOL [Robaxin TAB] 200 mg PO Q8H PRN #30 tablet 10/14/19 Unknown Rx predniSONE [Deltasone] 40 mg PO QDAY 5 Days #10 tab 10/14/19 Unknown Rx Cyclobenzaprine [Flexeril 10 MG 10 mg PO BID PRN #20 tablet 12/06/19 Unknown Rx TAB] Ibuprofen [Motrin 800 MG tab] 800 mg PO TID 5 Days #30 tablet 12/06/19 Unknown Rx Albuterol Mdi (or & Nicu Only) 1 puff IH Q4-6H PRN #1 inha 09/07/20 Unknown Rx [ProAir HFA Inhaler] Azithromycin [Zithromax] 500 mg PO QDAY #5 tablet 09/07/20 Unknown Rx guaiFENesin/CODEINE [Robitussin AC] 5 ml PO Q6H PRN #120 ml 09/07/20 Unknown Rx predniSONE [Deltasone] 50 mg PO QDAY #5 tab 09/07/20 Unknown Rx Allergies Allergy/AdvReac Type Severity Reaction Status Date / Time Penicillins Allergy Shortness Verified 09/07/20 11:10 of Breath ED Review of Systems ROS: Stated complaint: COUGH, HEAD COLD,DEHYDRATION Other details as noted in HPI Comment: All other systems reviewed and negative ED Past Medical Hx - Past Medical History Hx Hypertension: Yes Hx GERD: Yes Hx Asthma: Yes Additional medical history: VERTIGO. OBESITY - Surgical History Additional Surgical History: . HYSTERECTOMY. MASS REMOVED RIGHT LEG - Social History Smoking Status: Never Smoker Substance Use Type: None - Medications Home Medications: Home Medications Medication Instructions Recorded Confirmed Last Taken Type Promethazine [Phenergan] 25 mg PO Q6HR PRN #14 tab 05/12/17 Unknown Rx HYDROcodone/APAP 5-325 [[place] 1 each PO Q6HR PRN #10 tablet 07/06/19 Unknown Rx 5/325] Diclofenac Dr (Nf) 50 mg PO TID PRN #30 tab 10/14/19 Unknown Rx Methyl Salicylate/Menthol [[place] 1 applicatio TP QID PRN #1 tube 10/14/19 Unknown Rx [place] Active 16%-8% Gel] methOCARBAMOL [Robaxin TAB] 200 mg PO Q8H PRN #30 tablet 10/14/19 Unknown Rx predniSONE [Deltasone] 40 mg PO QDAY 5 Days #10 tab 10/14/19 Unknown Rx Cyclobenzaprine [Flexeril 10 MG 10 mg PO BID PRN #20 tablet 12/06/19 Unknown Rx TAB] Ibuprofen [Motrin 800 MG tab] 800 mg PO TID 5 Days #30 tablet 12/06/19 Unknown Rx Albuterol Mdi (or & Nicu Only) 1 puff IH Q4-6H PRN #1 inha 09/07/20 Unknown Rx [ProAir HFA Inhaler] Azithromycin [Zithromax] 500 mg PO QDAY #5 tablet 09/07/20 Unknown Rx guaiFENesin/CODEINE [Robitussin AC] 5 ml PO Q6H PRN #120 ml 09/07/20 Unknown Rx predniSONE [Deltasone] 50 mg PO QDAY #5 tab 09/07/20 Unknown Rx ED Physical Exam - General Limitations: No Limitations General appearance: alert, in no apparent distress - Head Head exam: Present: atraumatic, normocephalic - Eye Eye exam: Present: normal appearance, PERRL Pupils: Present: normal accommodation - ENT ENT exam: Present: normal exam, normal orophraynx, mucous membranes moist, TM's normal bilaterally - Neck Neck exam: Present: normal inspection, full ROM - Respiratory Respiratory exam: Present: normal lung sounds bilaterally, wheezes, rhonchi, decreased breath sounds. Absent: respiratory distress - Cardiovascular Cardiovascular Exam: Present: regular rate, normal rhythm. Absent: systolic murmur, diastolic murmur, rubs, gallop - GI/Abdominal GI/Abdominal exam: Present: soft, normal bowel sounds - Extremities Exam Extremities exam: Present: normal inspection, normal capillary refill - Back Exam Back exam: Present: normal inspection - Neurological Exam Neurological exam: Present: alert, oriented X3, CN II-XII intact - Psychiatric Psychiatric exam: Present: normal affect, normal mood - Skin Skin exam: Present: warm, dry, intact, normal color. Absent: rash ED Course Vital Signs 09/07/20 11:15 Temperature 99.2 F Pulse Rate 107 H Respiratory 24 Rate Blood Pressure 124/86 O2 Sat by Pulse 95 Oximetry ED Medical Decision Making - Radiology Data Radiology results: [place] [address] XRay Report Signed Patient: TASHA JAMISON MR#: [id number] : 1970 Acct:[id number] Age/Sex: 50 / F ADM Date: 09/07/20 Loc: ED Attending Dr: Ordering Physician: MART OROPEZA Date of Service: 09/07/20 Procedure(s): XR chest routine 2V Accession Number(s): [id number] cc: MART OROPEZA Fluoro Time In Minutes: CHEST 2 VIEWS INDICATION: cough. COMPARISON: 05/06/2019. FINDINGS: Support devices: None. Heart: Within normal limits. Lungs/Pleura: Lung volumes are diminished. Mild right basilar opacity. No significant pleural effusion. IMPRESSION: Diminished lung volumes with possible right basilar pneumonia. Signer Name: Adama Quiroz MD Signed: 09/07/2020 2:01 PM Workstation Name: [id number] Transcribed By: ES Dictated By: Adama Quiroz MD Electronically Authenticated By: Adama Quiroz MD Signed Date/Time: 09/07/20 1401 DD/ 1400 TD/TT: - Medical Decision Making This patient presents with acute cough, most consistent with bronchitis/right lower lobe pneumonia. Differential diagnosis includes . Presentation not consistent with acute bacterial pneumonia, influenza, asthma, transient airway hyperresponsiveness. Presentation not consistent with chronic causes of cough (including GERD, asthma, postnasal discharge, medication side effect, CHF, lung cancer or mass). She maintains normal saturation with ambulating well emergency department with the lowest saturation being 90% on room air Plan: Due to findings on x-ray will give presentation patient is in the spirometer and advised on utilization of albuterol and cough suppressant as well as antibiotic is been advised to follow-up with a primary care doctor within 48 hours for reevaluation. Critical care attestation.: If time is entered above; I have spent that time in minutes in the direct care of this critically ill patient, excluding procedure time. ED Disposition Clinical Impression: Cough, Pneumonia Disposition: - TO HOME OR SELFCARE Is pt being admited?: No Does the pt Need Aspirin: No Condition: Stable Instructions: Bacterial Pneumonia (ED), Cool Mist Vaporizer, Cough, Adult, Community-Acquired Pneumonia, Adult Prescriptions: predniSONE [Deltasone] 50 mg PO QDAY #5 tab Albuterol Mdi (or & Nicu Only) [ProAir HFA Inhaler] 1 puff IH Q4-6H PRN #1 inha PRN Reason: Cough guaiFENesin/CODEINE [Robitussin AC] 5 ml PO Q6H PRN #120 ml PRN Reason: Cough Azithromycin [Zithromax] 500 mg PO QDAY #5 tablet Referrals: PRIMARY CAREMD [Primary Care Provider] - 3-5 Days [facility] [Provider Group] - 3-5 Days
== END 2020-09-07 16:06 | disposition home or self-care (01) ==
LOC: ED 11:05
DX: J18.9 Pneumonia, unspecified organism (principal); R05 Cough; I10 Essential (primary) hypertension; K21.9 Gastro-esophageal reflux disease without esophagitis; J45.909 Unspecified asthma, uncomplicated; Z90.710 Acquired absence of both cervix and uterus; Z98.890 Other specified postprocedural states; Z79.1 Long term (current) use of non-steroidal anti-inflammatories (NSAID); Z79.2 Long term (current) use of antibiotics; Z79.899 Other long term (current) drug therapy; Z88.0 Allergy status to penicillin
CPT/HCPCS: 71046; 94640; 94644

== ENCOUNTER 2020-11-04 09:47 | Emergency (ER) | payer OTHER ==
[2020-11-04 09:52] VITALS: BP 156/112
[2020-11-04] MEDS ORDERED: predniSONE 20 MG TAB PO ONE (10:01)
--- NOTE | 2020-11-04 10:01 | Emergency Department Report ---
ED ENT HPI - General Chief complaint: Sore Throat Stated complaint: RT WRIST/THROAT PAIN Time Seen by Provider: 11/04/20 09:55 Source: patient Mode of arrival: Ambulatory Limitations: No Limitations - History of Present Illness Initial comments: Patient is a 50-year-old male who presents to ED complaining of throat pain 2 days. Patient describes pain as throbbing in nature, 8 out of 10 intensity, nonradiating, localized to his throat. Admits pain with swallowing and eating. Patient admits no appetite due to throat pain. Patient admits dry, nonproductive cough. Patient also complaining of right wrist pain stating that she fell on it 2 days ago. Patient denies nausea/vomiting/abdominal pain/shortness of breath/chest pain/headache. MD complaint: sore throat - Related Data Previous Rx's Medication Instructions Recorded Last Taken Type Promethazine [Phenergan] 25 mg PO Q6HR PRN #14 tab 05/12/17 Unknown Rx HYDROcodone/APAP 5-325 [[place] 1 each PO Q6HR PRN #10 tablet 07/06/19 Unknown Rx 5/325] Diclofenac Dr (Nf) 50 mg PO TID PRN #30 tab 10/14/19 Unknown Rx Methyl Salicylate/Menthol [[place] 1 applicatio TP QID PRN #1 tube 10/14/19 Unknown Rx [place] Active 16%-8% Gel] methOCARBAMOL [Robaxin TAB] 200 mg PO Q8H PRN #30 tablet 10/14/19 Unknown Rx predniSONE [Deltasone] 40 mg PO QDAY 5 Days #10 tab 10/14/19 Unknown Rx Cyclobenzaprine [Flexeril 10 MG 10 mg PO BID PRN #20 tablet 12/06/19 Unknown Rx TAB] Albuterol Mdi (or & Nicu Only) 1 puff IH Q4-6H PRN #1 inha 09/07/20 Unknown Rx [ProAir HFA Inhaler] guaiFENesin/CODEINE [Robitussin AC] 5 ml PO Q6H PRN #120 ml 09/07/20 Unknown Rx predniSONE [Deltasone] 50 mg PO QDAY #5 tab 09/07/20 Unknown Rx Azithromycin [Zithromax TAB] 500 mg PO QDAY #5 tablet 11/04/20 Unknown Rx Ibuprofen [Motrin 800 MG tab] 800 mg PO TID 5 Days #30 tablet 11/04/20 Unknown Rx Nystas/Diphen/Xyl Visc/Mylanta 30 ml MM Q4H PRN #120 ml 11/04/20 Unknown Rx [Magic Mouthwash] Allergies Allergy/AdvReac Type Severity Reaction Status Date / Time Penicillins Allergy Shortness Verified 09/07/20 11:10 of Breath ED Dental HPI - General Chief complaint: Sore Throat Stated complaint: RT WRIST/THROAT PAIN Time Seen by Provider: 11/04/20 09:55 Source: patient Mode of arrival: Ambulatory Limitations: No Limitations - Related Data Previous Rx's Medication Instructions Recorded Last Taken Type Promethazine [Phenergan] 25 mg PO Q6HR PRN #14 tab 05/12/17 Unknown Rx HYDROcodone/APAP 5-325 [[place] 1 each PO Q6HR PRN #10 tablet 07/06/19 Unknown Rx 5/325] Diclofenac Dr (Nf) 50 mg PO TID PRN #30 tab 10/14/19 Unknown Rx Methyl Salicylate/Menthol [[place] 1 applicatio TP QID PRN #1 tube 10/14/19 Unknown Rx [place] Active 16%-8% Gel] methOCARBAMOL [Robaxin TAB] 200 mg PO Q8H PRN #30 tablet 10/14/19 Unknown Rx predniSONE [Deltasone] 40 mg PO QDAY 5 Days #10 tab 10/14/19 Unknown Rx Cyclobenzaprine [Flexeril 10 MG 10 mg PO BID PRN #20 tablet 12/06/19 Unknown Rx TAB] Albuterol Mdi (or & Nicu Only) 1 puff IH Q4-6H PRN #1 inha 09/07/20 Unknown Rx [ProAir HFA Inhaler] guaiFENesin/CODEINE [Robitussin AC] 5 ml PO Q6H PRN #120 ml 09/07/20 Unknown Rx predniSONE [Deltasone] 50 mg PO QDAY #5 tab 09/07/20 Unknown Rx Azithromycin [Zithromax TAB] 500 mg PO QDAY #5 tablet 11/04/20 Unknown Rx Ibuprofen [Motrin 800 MG tab] 800 mg PO TID 5 Days #30 tablet 11/04/20 Unknown Rx Nystas/Diphen/Xyl Visc/Mylanta 30 ml MM Q4H PRN #120 ml 11/04/20 Unknown Rx [Magic Mouthwash] Allergies Allergy/AdvReac Type Severity Reaction Status Date / Time Penicillins Allergy Shortness Verified 09/07/20 11:10 of Breath ED Review of Systems ROS: Stated complaint: RT WRIST/THROAT PAIN Other details as noted in HPI Comment: All other systems reviewed and negative ED Past Medical Hx - Past Medical History Hx Hypertension: Yes Hx GERD: Yes Hx Asthma: Yes Additional medical history: VERTIGO. OBESITY - Surgical History Additional Surgical History: . HYSTERECTOMY. MASS REMOVED RIGHT LEG - Social History Smoking Status: Never Smoker Substance Use Type: None - Medications Home Medications: Home Medications Medication Instructions Recorded Confirmed Last Taken Type Promethazine [Phenergan] 25 mg PO Q6HR PRN #14 tab 05/12/17 Unknown Rx HYDROcodone/APAP 5-325 [[place] 1 each PO Q6HR PRN #10 tablet 07/06/19 Unknown Rx 5/325] Diclofenac Dr (Nf) 50 mg PO TID PRN #30 tab 10/14/19 Unknown Rx Methyl Salicylate/Menthol [[place] 1 applicatio TP QID PRN #1 tube 10/14/19 Unknown Rx [place] Active 16%-8% Gel] methOCARBAMOL [Robaxin TAB] 200 mg PO Q8H PRN #30 tablet 10/14/19 Unknown Rx predniSONE [Deltasone] 40 mg PO QDAY 5 Days #10 tab 10/14/19 Unknown Rx Cyclobenzaprine [Flexeril 10 MG 10 mg PO BID PRN #20 tablet 12/06/19 Unknown Rx TAB] Albuterol Mdi (or & Nicu Only) 1 puff IH Q4-6H PRN #1 inha 09/07/20 Unknown Rx [ProAir HFA Inhaler] guaiFENesin/CODEINE [Robitussin AC] 5 ml PO Q6H PRN #120 ml 09/07/20 Unknown Rx predniSONE [Deltasone] 50 mg PO QDAY #5 tab 09/07/20 Unknown Rx Azithromycin [Zithromax TAB] 500 mg PO QDAY #5 tablet 11/04/20 Unknown Rx Ibuprofen [Motrin 800 MG tab] 800 mg PO TID 5 Days #30 tablet 11/04/20 Unknown Rx Nystas/Diphen/Xyl Visc/Mylanta 30 ml MM Q4H PRN #120 ml 11/04/20 Unknown Rx [Magic Mouthwash] ED Physical Exam - General Limitations: No Limitations General appearance: alert, in no apparent distress - Head Head exam: Present: atraumatic, normocephalic - Eye Eye exam: Present: normal appearance - ENT ENT exam: Present: mucous membranes moist - Expanded ENT Exam Expanded Mouth exam: Present: normal external inspection Teeth exam: Present: normal inspection Throat exam: Positive: tonsillar erythema (right), tonsillomegaly, tonsillar exudate - Neck Neck exam: Present: normal inspection, full ROM, lymphadenopathy. Absent: tende rness - Respiratory Respiratory exam: Present: normal lung sounds bilaterally. Absent: respiratory distress - Cardiovascular Cardiovascular Exam: Present: regular rate, normal rhythm. Absent: systolic murmur, diastolic murmur, rubs, gallop - GI/Abdominal GI/Abdominal exam: Present: soft, normal bowel sounds - Extremities Exam Extremities exam: Present: normal inspection, full ROM, tenderness (To palpation of the right wrist, minimal swelling noted) - Back Exam Back exam: Present: normal inspection - Neurological Exam Neurological exam: Present: alert, oriented X3 - Psychiatric Psychiatric exam: Present: normal affect, normal mood - Skin Skin exam: Present: warm, dry, intact, normal color. Absent: rash ED Course Vital Signs 11/04/20 11/04/20 09:51 11:41 Temperature 98.4 F Pulse Rate 93 H Respiratory 20 18 Rate Blood Pressure 156/112 O2 Sat by Pulse 100 Oximetry ED Medical Decision Making - Radiology Data Radiology results: report reviewed, image reviewed Fluoro Time In Minutes: RIGHT WRIST 2 VIEWS INDICATION: pain. COMPARISON: None. IMPRESSION: No acute osseous or soft tissue abnormality. No significant DJD. Signer Name: Darin Smith Jr, MD Signed: 11/04/2020 10:39 AM Workstation Name: [id number] Transcribed By: TTR Dictated By: DARIN SMITH JR, MD Electronically Authenticated By: DARIN SMITH JR, MD Signed Date/Time: 11/04/20 1039 - Medical Decision Making 50-year-old male presents with pharyngitis and a wrist sprain. ED course: Rapid strep tests ordered, rapid strep test negative Patient received 1 dose of Tylenol, 60 mg of prednisone. There was no fever throughout ED stay X-ray shows no acute fracture of the wrist. Patient placed in wrist brace prior to discharge Vital signs stable patient is in no acute or respiratory distress. Discussed with patient follow-up with primary care physician. Patient verbally states he understands and will comply to follow-up. Critical care attestation.: If time is entered above; I have spent that time in minutes in the direct care of this critically ill patient, excluding procedure time. ED Disposition Clinical Impression: Pharyngitis, Wrist pain, right, Wrist sprain Disposition: TO HOME OR SELFCARE Is pt being admited?: No Does the pt Need Aspirin: No Condition: Stable Instructions: Pharyngitis, [id number], Joint Pain, Qmgi-[id number] Additional Instructions: Make sure to follow up with the primary care physician as discussed. Take all your medications as you've been prescribed. If you have any worsening symptoms or develop new symptoms please return to ED immediately. Prescriptions: Nystas/Diphen/Xyl Visc/Mylanta [Magic Mouthwash] 30 ml MM Q4H PRN #120 ml PRN Reason: Sore Throat Ibuprofen [Motrin 800 MG tab] 800 mg PO TID 5 Days #30 tablet Azithromycin [Zithromax TAB] 500 mg PO QDAY #5 tablet Referrals: PRIMARY CARE, [Primary Care Provider] - 3-5 Days [facility] [Outside] - 3-5 Days [facility] [Outside] - 3-5 Days [facility] [Outside] - 3-5 Days Forms: Accompanied Note, Work/School Release Form(ED) Time of Disposition: 12:14
[2020-11-04] MEDS ORDERED: ACETAMINOPHEN 325 MG TAB PO ONE (10:02)
--- NOTE | 2020-11-04 10:44 | XRay Report ---
RIGHT WRIST 2 VIEWS INDICATION: pain. COMPARISON: None. IMPRESSION: No acute osseous or soft tissue abnormality. No significant DJD. Signer Name: Darin Rodriguez Jr, MD Signed: 11/04/2020 10:39 AM Workstation Name: [id number]
== END 2020-11-04 12:51 | disposition home or self-care (01) ==
LOC: ED 09:47
DX: S63.501A Unspecified sprain of right wrist, initial encounter (principal); J02.9 Acute pharyngitis, unspecified; I10 Essential (primary) hypertension; K21.9 Gastro-esophageal reflux disease without esophagitis; J45.909 Unspecified asthma, uncomplicated; Z90.710 Acquired absence of both cervix and uterus; Z98.890 Other specified postprocedural states; Z79.1 Long term (current) use of non-steroidal anti-inflammatories (NSAID); Z79.2 Long term (current) use of antibiotics; Z79.899 Other long term (current) drug therapy; Z88.0 Allergy status to penicillin; W19.XXXA Unspecified fall, initial encounter; Y93.89 Activity, other specified; Y92.89 Other specified places as the place of occurrence of the external cause; Y99.8 Other external cause status
CPT/HCPCS: 29125; 73100; 87116; 87430; 99284; J7512

== ENCOUNTER 2020-11-08 08:58 | Emergency (ER) | payer OTHER ==
--- NOTE | 2020-11-08 09:49 | Emergency Department Report ---
- General Chief Complaint: Upper Respiratory Infection Stated Complaint: THROAT/CHESTPAIN/SHOULDER PAIN Time Seen by Provider: 11/08/20 09:27 Source: patient Mode of arrival: Ambulatory Limitations: No Limitations - History of Present Illness Initial Comments: Patient is 51 years old female with history of hypertension. Patient presented to the ER complaining of cough, productive with greenish sputum for the last 5 days. Patient denied any fever or chills. Patient denied chest pain or shortness of breath. No nausea or vomiting. MD Complaint: cough -: days(s) Severity: moderate - Related Data Previous Rx's Medication Instructions Recorded Last Taken Type Promethazine [Phenergan] 25 mg PO Q6HR PRN #14 tab 05/12/17 Unknown Rx HYDROcodone/APAP 5-325 [[place] 1 each PO Q6HR PRN #10 tablet 07/06/19 Unknown Rx 5/325] Diclofenac Dr (Nf) 50 mg PO TID PRN #30 tab 10/14/19 Unknown Rx Methyl Salicylate/Menthol [[place] 1 applicatio TP QID PRN #1 tube 10/14/19 Unknown Rx [place] Active 16%-8% Gel] methOCARBAMOL [Robaxin TAB] 200 mg PO Q8H PRN #30 tablet 10/14/19 Unknown Rx predniSONE [Deltasone] 40 mg PO QDAY 5 Days #10 tab 10/14/19 Unknown Rx Cyclobenzaprine [Flexeril 10 MG 10 mg PO BID PRN #20 tablet 12/06/19 Unknown Rx TAB] Albuterol Mdi (or & Nicu Only) 1 puff IH Q4-6H PRN #1 inha 09/07/20 Unknown Rx [ProAir HFA Inhaler] guaiFENesin/CODEINE [Robitussin AC] 5 ml PO Q6H PRN #120 ml 09/07/20 Unknown Rx predniSONE [Deltasone] 50 mg PO QDAY #5 tab 09/07/20 Unknown Rx Azithromycin [Zithromax TAB] 500 mg PO QDAY #5 tablet 11/04/20 Unknown Rx Ibuprofen [Motrin 800 MG tab] 800 mg PO TID 5 Days #30 tablet 11/04/20 Unknown Rx Nystas/Diphen/Xyl Visc/Mylanta 30 ml MM Q4H PRN #120 ml 11/04/20 Unknown Rx [Magic Mouthwash] Fluticasone [Flonase] 1 spray NS QDAY #1 bottle 11/08/20 Unknown Rx guaiFENesin/CODEINE [Robitussin AC] 10 ml PO TID PRN #100 ml 11/08/20 Unknown Rx levoFLOXacin [Levaquin TAB] 500 mg PO QDAY #7 tablet 11/08/20 Unknown Rx Allergies Allergy/AdvReac Type Severity Reaction Status Date / Time Penicillins Allergy Shortness Verified 11/08/20 09:03 of Breath ED Review of Systems ROS: Stated complaint: THROAT/CHESTPAIN/SHOULDER PAIN Other details as noted in HPI Comment: All other systems reviewed and negative Constitutional: denies: chills, fever Respiratory: cough. denies: orthopnea, shortness of breath, SOB with exertion, SOB at rest, wheezing Cardiovascular: denies: chest pain, palpitations Gastrointestinal: denies: abdominal pain, nausea, vomiting Musculoskeletal: denies: back pain Neurological: denies: headache, weakness, numbness, paresthesias, confusion, abnormal gait ED Past Medical Hx - Past Medical History Hx Hypertension: Yes Hx GERD: Yes Hx Asthma: Yes Additional medical history: VERTIGO. OBESITY - Surgical History Additional Surgical History: . HYSTERECTOMY. MASS REMOVED RIGHT LEG - Social History Smoking Status: Never Smoker Substance Use Type: None - Medications Home Medications: Home Medications Medication Instructions Recorded Confirmed Last Taken Type Promethazine [Phenergan] 25 mg PO Q6HR PRN #14 tab 05/12/17 Unknown Rx HYDROcodone/APAP 5-325 [[place] 1 each PO Q6HR PRN #10 tablet 07/06/19 Unknown Rx 5/325] Diclofenac Dr (Nf) 50 mg PO TID PRN #30 tab 10/14/19 Unknown Rx Methyl Salicylate/Menthol [[place] 1 applicatio TP QID PRN #1 tube 10/14/19 Unknown Rx [place] Active 16%-8% Gel] methOCARBAMOL [Robaxin TAB] 200 mg PO Q8H PRN #30 tablet 10/14/19 Unknown Rx predniSONE [Deltasone] 40 mg PO QDAY 5 Days #10 tab 10/14/19 Unknown Rx Cyclobenzaprine [Flexeril 10 MG 10 mg PO BID PRN #20 tablet 12/06/19 Unknown Rx TAB] Albuterol Mdi (or & Nicu Only) 1 puff IH Q4-6H PRN #1 inha 09/07/20 Unknown Rx [ProAir HFA Inhaler] guaiFENesin/CODEINE [Robitussin AC] 5 ml PO Q6H PRN #120 ml 09/07/20 Unknown Rx predniSONE [Deltasone] 50 mg PO QDAY #5 tab 09/07/20 Unknown Rx Azithromycin [Zithromax TAB] 500 mg PO QDAY #5 tablet 11/04/20 Unknown Rx Ibuprofen [Motrin 800 MG tab] 800 mg PO TID 5 Days #30 tablet 11/04/20 Unknown Rx Nystas/Diphen/Xyl Visc/Mylanta 30 ml MM Q4H PRN #120 ml 11/04/20 Unknown Rx [Magic Mouthwash] Fluticasone [Flonase] 1 spray NS QDAY #1 bottle 11/08/20 Unknown Rx guaiFENesin/CODEINE [Robitussin AC] 10 ml PO TID PRN #100 ml 11/08/20 Unknown Rx levoFLOXacin [Levaquin TAB] 500 mg PO QDAY #7 tablet 11/08/20 Unknown Rx ED Physical Exam - General Limitations: No Limitations General appearance: alert, in no apparent distress - Head Head exam: Present: atraumatic, normocephalic, normal inspection - Eye Eye exam: Present: normal appearance, PERRL - ENT ENT exam: Present: normal exam, normal orophraynx, mucous membranes moist - Neck Neck exam: Present: normal inspection, full ROM. Absent: tenderness, meningismus - Respiratory Respiratory exam: Present: normal lung sounds bilaterally - Cardiovascular Cardiovascular Exam: Present: regular rate, normal rhythm, normal heart sounds - GI/Abdominal GI/Abdominal exam: Present: soft, normal bowel sounds. Absent: distended, tenderness, guarding, rebound, rigid, organomegaly, mass, bruit, pulsatile mass, hernia - Extremities Exam Extremities exam: Present: normal inspection, full ROM, normal capillary refill. Absent: tenderness - Back Exam Back exam: Present: normal inspection, full ROM. Absent: CVA tenderness (R), CVA tenderness (L) - Neurological Exam Neurological exam: Present: alert, oriented X3, CN II-XII intact - Psychiatric Psychiatric exam: Present: normal mood - Skin Skin exam: Present: warm, intact, normal color ED Course Vital Signs 11/08/20 09:09 Temperature 98.5 F Pulse Rate 86 Respiratory 20 Rate Blood Pressure 157/96 O2 Sat by Pulse 97 Oximetry ED Medical Decision Making - Radiology Data Radiology results: report reviewed - Medical Decision Making Patient is 51 years old female with history of hypertension. Patient presented to the ER complaining of cough, productive with greenish sputum for the last 5 days. Patient denied any fever or chills. Patient denied chest pain or shortness of breath. No nausea or vomiting Patient remained stable in the ER with a stable vital sign and oxygen saturation of 100% on room air. Chest x-ray showed bilateral basilar opacities. Patient treated with Zithromax last time however symptoms not improving. I started patient on Levaquin. There is a concern for COVID-19 pneumonia 2. I informed the patient about her result and the need to follow-up with her primary doctor for further testing and to isolate herself. Patient given printout about COVID- 19 and advised to return to the ER if symptoms are not improving or getting worse. Critical care attestation.: If time is entered above; I have spent that time in minutes in the direct care of this critically ill patient, excluding procedure time. ED Disposition Clinical Impression: Pneumonia, Suspected 2018-nCoV infection Disposition: - TO HOME OR SELFCARE Is pt being admited?: No Condition: Stable Instructions: Bacterial Pneumonia (ED), Community-Acquired Pneumonia, Adult, Prevent the Spread of COVID-19 if You Are Sick - CDC, COVID-19 Frequently Asked Questions Prescriptions: Fluticasone [Flonase] 1 spray NS QDAY #1 bottle levoFLOXacin [Levaquin TAB] 500 mg PO QDAY #7 tablet guaiFENesin/CODEINE [Robitussin AC] 10 ml PO TID PRN #100 ml PRN Reason: Cough Referrals: PRIMARY CARE, [Referring] - 3-5 Days
--- NOTE | 2020-11-08 10:41 | XRay Report ---
CHEST 2 VIEWS INDICATION / CLINICAL INFORMATION: cough. COMPARISON: 09/07/2020 FINDINGS: SUPPORT DEVICES: None. HEART / MEDIASTINUM: Stable. LUNGS / PLEURA: Persistent mild bibasilar pulmonary opacities, minimally worsened on the right. No pl eural effusion. No pneumothorax. ADDITIONAL FINDINGS: No significant additional findings. IMPRESSION: 1. Persistent bibasilar pulmonary opacities when compared to prior exam with minimal worsening on the right. Signer Name: Everton Dinh MD Signed: 11/08/2020 10:37 AM Workstation Name: [id number]
[2020-11-08 11:19] VITALS: BP 157/97
== END 2020-11-08 11:18 | disposition home or self-care (01) ==
LOC: ED 08:58
DX: J18.9 Pneumonia, unspecified organism (principal); Z20.822 Contact with and (suspected) exposure to COVID-19; I10 Essential (primary) hypertension; K21.9 Gastro-esophageal reflux disease without esophagitis; J45.909 Unspecified asthma, uncomplicated; Z90.710 Acquired absence of both cervix and uterus; Z98.890 Other specified postprocedural states; Z79.899 Other long term (current) drug therapy; Z88.0 Allergy status to penicillin
CPT/HCPCS: 71046; 93005